=== PATIENT | male | born 1950 | race Caucasian/White ===

== ENCOUNTER → 2017-03-20 | Outpatient (CLI) | payer BC, MEDICARE ==
[2017-03-20 13:28] LABS: URINE APPEARANCE CLOUDY (CLEAR); URINE BILIRUBIN NEG (NEG); URINE COLOR YELLOW; URINE NITRITE NEG (NEG); URINE SPECIFIC GRAVITY 1.018 (1.000-1.030); UROBILINOGEN NEG (NEG)
[2017-03-20 13:34] LABS: MANUAL MICROSCOPIC REQUIRED? NO; REVIEW REQ? YES
[2017-03-20 13:42] LABS: URINE PROTIEN/CREAT RATIO 0.4 (0-0.2); URINE TOTAL PROTEIN 89.1 mg/dl (0-11.9)
[2017-03-20 14:30] LABS: ALT/SGPT 25 U/L (12-78); BLOOD UREA NITROGEN 34 mg/dl (7-18); BUN/CREATININE RATIO 16.9 (10-20); CARBON DIOXIDE 22 mmol/L (21-32); CHLORIDE 109 mmol/L (98-107); CHOLESTEROL 130 mg/dl (0-200); GLUCOSE 90 mg/dl (70-99); POTASSIUM 4.8 mmol/L (3.5-5.1); SODIUM 141 mmol/L (136-145); TRIGLYCERIDES 113 mg/dl (0-150); VERY LOW DENSITY LIPOPROT CALC 23 mg/dl
[2017-03-20 14:31] LABS: CALCIUM 10.5 mg/dl (8.5-10.1)
[2017-03-20 14:32] LABS: URINE PATH CASTS 0-3 GRANULAR CASTS /lpf (0)
[2017-03-20 14:35] LABS: ALKALINE PHOSPHATASE 45 U/L (45-117); AST/SGOT 18 U/L (15-37); CHOLESTEROL/HDL RATIO 4.5; HDL CHOLESTEROL 29 mg/dl; LDL CHOLESTEROL CALCULATED 78 mg/dl; PHOSPHORUS 2.7 mg/dl (2.5-4.9); PROSTATE SPECIFIC ANTIGEN 0.842 ng/ml (0.000-4.000)
== END | disposition home or self-care (01) ==
LOC: C.LABMFLN 09:28
PROVIDERS: ATTEND Family Medicine
DX: N18.9 Chronic kidney disease, unspecified (principal); E78.5 Hyperlipidemia, unspecified; Z12.5 Encounter for screening for malignant neoplasm of prostate

== ENCOUNTER → 2017-03-23 | Outpatient (CLI) | payer MEDICARE ==
[2017-03-23 13:23] LABS: URINE PROTIEN/CREAT RATIO 0.2 (0-0.2); URINE TOTAL PROTEIN 25.1 mg/dl (0-11.9)
[2017-03-23 13:25] LABS: URINE APPEARANCE CLEAR (CLEAR); URINE BILIRUBIN NEG (NEG); URINE COLOR YELLOW; URINE NITRITE NEG (NEG); URINE SPECIFIC GRAVITY 1.018 (1.000-1.030); UROBILINOGEN NEG (NEG)
[2017-03-23 13:30] LABS: BLOOD UREA NITROGEN 32 mg/dl (7-18); CALCIUM 9.4 mg/dl (8.5-10.1); CARBON DIOXIDE 24 mmol/L (21-32); CHLORIDE 111 mmol/L (98-107); GLUCOSE 102 mg/dl (70-99); PHOSPHORUS 2.3 mg/dl (2.5-4.9); SODIUM 142 mmol/L (136-145)
[2017-03-23 13:37] LABS: MANUAL MICROSCOPIC REQUIRED? NO; REVIEW REQ? NO
[2017-03-28 15:30] LABS: ALBUMIN 4.3 G/DL (3.8-4.8); ALBUMIN % 69.99 %; ALPHA-2-GLOBULIN % 5.85 %; BETA GLOBULIN % 14.74 %; CREATININE UR 170 MG/DL (20-370); GAMMA GLOBULIN % 8.71 %; TOTAL PROTEIN 7.4 G/DL (6.2-8.3)
== END | disposition home or self-care (01) ==
LOC: C.LABMFLN 08:20
PROVIDERS: ATTEND Internal Medicine Nephrology
DX: E83.52 Hypercalcemia (principal); E55.9 Vitamin D deficiency, unspecified

== ENCOUNTER → 2017-09-05 | Outpatient (CLI) | payer MEDICARE ==
[2017-09-05 13:24] LABS: MEAN CELL VOLUME 92.6 fL (80-100); MEAN CORPUSCULAR HEMOGLOBIN 32.4 pg (25-34); MEAN PLATELET VOLUME 12.3 fL (7.4-10.4); PLATELET COUNT 220 K/uL (130-400); RED BLOOD COUNT 4.97 M/uL (4.7-6.1); WHITE BLOOD COUNT 8.33 K/uL (4.8-10.8)
[2017-09-05 13:35] LABS: BLOOD UREA NITROGEN 28 mg/dl (7-18); BUN/CREATININE RATIO 15.5 (10-20); CALCIUM 9.3 mg/dl (8.5-10.1); CARBON DIOXIDE 24 mmol/L (21-32); CHLORIDE 109 mmol/L (98-107); CREATININE 1.83 mg/dl (0.60-1.40); GLUCOSE 98 mg/dl (70-99); PHOSPHORUS 2.2 mg/dl (2.5-4.9); POTASSIUM 4.4 mmol/L (3.5-5.1); SODIUM 140 mmol/L (136-145)
[2017-09-05 13:38] LABS: URINE APPEARANCE CLEAR (CLEAR); URINE BILIRUBIN NEG (NEG); URINE COLOR YELLOW; URINE EPITHELIAL CELL AUTO >30 /lpf (0-5); URINE NITRITE NEG (NEG); URINE PH 6.5 (4.5-7.5); URINE SPECIFIC GRAVITY 1.014 (1.000-1.030); UROBILINOGEN NEG (NEG)
[2017-09-05 13:40] LABS: URINE PROTIEN/CREAT RATIO 0.9 (0-0.2); URINE TOTAL PROTEIN 147.8 mg/dl (0-11.9)
[2017-09-05 13:47] LABS: MANUAL MICROSCOPIC REQUIRED? NO; REVIEW REQ? YES
== END | disposition home or self-care (01) ==
LOC: C.LABMFLN 10:04
PROVIDERS: ATTEND Internal Medicine Nephrology
DX: N18.9 Chronic kidney disease, unspecified (principal)

== ENCOUNTER → 2018-03-07 | Outpatient (CLI) | payer MEDICARE | END | disposition home or self-care (01) | LOC: C.LABMFLN 08:27 | PROVIDERS: ATTEND Family Medicine | DX: E78.5 Hyperlipidemia, unspecified (principal) ==

== ENCOUNTER → 2018-03-23 | Outpatient (CLI) | payer MEDICARE ==
[2018-03-23 13:02] LABS: ALBUMIN 3.5 gm/dl (3.4-5.0); BLOOD UREA NITROGEN 36 mg/dl (7-18); CALCIUM 8.8 mg/dl (8.5-10.1); CARBON DIOXIDE 26 mmol/L (21-32); CREATININE 1.86 mg/dl (0.60-1.40); GLUCOSE 96 mg/dl (70-99); POTASSIUM 4.9 mmol/L (3.5-5.1); SODIUM 139 mmol/L (136-145)
[2018-03-23 13:03] LABS: PHOSPHORUS 2.3 mg/dl (2.5-4.9)
== END | disposition home or self-care (01) ==
LOC: C.LABMFLN 09:23
PROVIDERS: ATTEND Internal Medicine Nephrology
DX: Z87.448 Personal history of other diseases of urinary system (principal)